=== PATIENT | female | born 1960 | race Caucasian/White ===

== ENCOUNTER 2016-09-28 22:43 | Emergency (ER) | payer SELFPAY ==
--- NOTE | ~2016-09-28 | ER ---
PATIENT'S NAME: STACEY MORIN [facility] AGE: 56 Y [address] ROOM: [place] [address] LOCATION: ED ADMIT DATE: 09/28/2016 ER/Outpatient Report DISCHARGE DATE: 09/28/2016 FAMILY PHYSICIAN: Physician, Unknown ATTENDING PHYSICIAN: Alice Ling Time of evaluation: 2255 hours. HISTORY OF PRESENT ILLNESS: The patient is a 56-year-old female, who was brought in by the [employer] for medical clearance. The patient on her arrest today stated she has had rectal bleeding today. The patient said that the rectal bleeding has been going on and off for about a year. She states that the bleeding occurs following a bowel movement. She denies any weight loss or change in her bowel pattern or abdominal pain. ALLERGIES: PENICILLIN AND KEFLEX. CURRENT MEDICATIONS: None. PAST MEDICAL HISTORY: Includes sleep apnea, osteoarthritis, and alcohol abuse. PAST SURGICAL HISTORY: Include right hip replacement in 2013. SOCIAL HISTORY: Smoker pack a day that she has done for many years. Alcohol daily. Last alcohol intake was around noon. REVIEW OF SYSTEMS: GENERAL: No recent infections. HEENT: No severe headache or sore throat. RESPIRATORY: Denies any shortness of breath or cough. GASTROINTESTINAL: No weight loss. No change in bowel habits. She has had bright red rectal bleeding usually with a bowel movement. GENITOURINARY: No vaginal bleeding. No dysuria. SKIN: No bruising or rash. PHYSICAL EXAMINATION: VITAL SIGNS: Blood pressure 197/94, respiratory rate 16, pulse 105, and her O2 saturations 98%. GENERAL APPEARANCE: White female. She is cooperative. PATIENT'S NAME: STACEY MORIN [facility] AGE: 56 Y [address] ROOM: [place] [address] LOCATION: ED ADMIT DATE: 09/28/2016 ER/Outpatient Report DISCHARGE DATE: 09/28/2016 FAMILY PHYSICIAN: Physician, Unknown ATTENDING PHYSICIAN: Alice Ling HEENT: Head: Atraumatic. Eyes: . Pupils equal. Nose: Septum midline. Mouth: Teeth appear in decent repair. Oral membranes moist. NECK: Supple. No presence of adenopathy. LUNGS: Sound clear. HEART: Rhythm appeared regular. ABDOMEN: Soft and nontender. RECTAL: She does have some external hemorrhoids. There was no active bleeding. Stool was present in the vaginal vault, which was negative for occult blood. SKIN: Warm and dry. No petechiae or bruising noted. LABORATORY DATA AND X-RAYS: CBC: White count 5.8 and her hemoglobin 13.4. Pro-time was 10 and INR was 0.95. ASSESSMENT: 1. History of rectal bleeding. 2. External hemorrhoids. 3. Alcohol abuse. PLAN: Advised the patient to follow up with Dr. Abdifatah Mitchell, possibly scheduled for colonoscopy. Otherwise, she was medically cleared to go back to [facility]. JERICHO WILEY FOR [facility]/ian /[id number] d: 09/29/16 0002 t: 10/11/16 1009, OUTPATIENT REPORT
[2016-09-28 23:20] LABS: BASOPHIL % 0.5 %; EOSINOPHIL # 0.1 K/uL (0.0-0.5); EOSINOPHIL % 1.4 %; HEMATOCRIT 40.3 % (33.0-46.0); HEMOGLOBIN 13.4 g/dL (10.0-15.0); IMMATURE GRANULOCYTE % 0.2 %; LYMPHOCYTE # 1.8 K/uL (0.8-4.0); LYMPHOCYTE % 31.3 %; MCH 29.4 pg (27.0-34.0); MCHC 33.3 gm/dL (32.0-36.5); MCV 88.4 fl (83.0-98.0); MONOCYTE # 0.5 K/uL (0.0-1.0); MONOCYTE % 9.2 %; MPV 10.2 fl (9.4-12.4); NEUTROPHIL # (ANC) 3.3 K/uL (1.8-7.8); NEUTROPHIL % 57.4 %; NRBC % 0 /100WBC (0-0.00); PLATELET COUNT 250 K/uL (150-450); RBC 4.56 M/uL (3.50-5.50); RDW-CV 13.6 % (11.9-14.6); WBC 5.8 K/uL (4.0-11.0)
[2016-09-28 23:28] LABS: INR - (THERAPEUTIC) 0.95 (0.92-1.07)
[2016-09-28 23:37] LABS: ALBUMIN 3.3 gm/dL (3.5-5.0); ANION GAP 10.6 (10.0-19.0); CALCIUM 8.4 mg/dL (8.5-10.5); CREATININE 0.8 mg/dL (0.5-1.1); POTASSIUM 3.6 mMol/L (3.7-5.1); TOTAL BILIRUBIN 0.2 mg/dL (0.0-1.5); TOTAL PROTEIN 6.7 g/dL (6.0-8.4)
== END 2016-09-28 23:27 | disposition disaster alternative care site (69) ==
LOC: GMED 22:43
PROVIDERS: Physician Assistant Medical
DX: K64.4 Residual hemorrhoidal skin tags (principal); F10.10 Alcohol abuse, uncomplicated; F17.210 Nicotine dependence, cigarettes, uncomplicated; Z88.0 Allergy status to penicillin; Z88.1 Allergy status to other antibiotic agents; Z96.641 Presence of right artificial hip joint